=== PATIENT | male | born 1965 | race Caucasian/White ===

== ENCOUNTER 2025-01-14 19:36 | Emergency (ER) | payer OTHER, SELFPAY ==
--- OUTSIDE RECORDS SUMMARY | 2025-01-14 19:38 | XMS REPORT | Continuity of Care Document ---
Author Name Unknown Address [address] [facility] [address] [place] [address] [facility] thconnect Address [address] [facility] 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 Sex Assigned At [facility] Exposure to SARS-CoV-2 (event) Not sure [facility] Alcohol intake 2020-04-15 00:00:00 2020-04-15 00:00:00 [facility] History SDOH Alcohol Frequency 2020-04-15 00:00:00 2020-04-15 00:00:[address] [facility] Smoking Status Start Date Stop Date Source Former smoker 2020-04-15 00:00:00 2020-04-15 00:00:00 [facility] Medications Ordered Medication Name Filled Medication Name Start Date Stop Date Current Medication? Ordering Clinician Indication Dosage Frequency Signature (SIG) Comments Components Source metoprolol tartrate 100 mg tablet 02-21 00:00: 00 Yes 100mg Take 100 mg by mouth daily. [facility] atorvastati n 20 mg tablet 02-21 00:00: 00 Yes TAKE 1 TABLET BY MOUTH NIGHTLY [facility] enalapril 10 mg tablet 02-21 00:00: 00 Yes 10mg Take 10 mg by mouth daily. [facility] pantoprazol e 40 mg EC tablet 02-21 00:00: 00 Yes 40mg Take 40 mg by mouth at bedtime. [facility] Vital Signs Vital Name Observation Time Observation Value Comments Kathryn richter Systolic blood pressure 2020-04-15 18:40:00 133 mm[Hg] [facility] Diastolic blood pressure 2020-04-15 18:40:00 83 mm[Hg] [facility] Heart rate 2020-04-15 18:40:00 70 /min [facility] Body height 2020-04-15 18:40:[address] [facility] Body weight 2020-04-15 18:40:[address] [facility] BMI 2020-04-15 18:40:00 29.43 kg/m2 [facility] Encounters Start Date/Time End Date/Time Encounter Type Admission Type Attending [facility] Care Facility Care Department Encounter ID Source 2024-10-10 11:19:17 2024-10-10 11:19:17 Outpatient [facility] [id number] 2023-09-24 14:06:29 2023-09-24 14:06:29 Outpatient [facility] [id number] 2020-04-15 13:37:44 2020-04-15 14:15:42 Office Visit Lester Bills [facility] [id number] [facility] 2020-04-15 13:30:00 2020-04-15 13:30:00 Outpatient R LESTER BILLS [facility] [id number] [facility]
[2025-01-14] MEDS ORDERED: NITROGLYCERIN 0.4 MG/TAB SL ONE (21:04)
[2025-01-14 21:10] LABS: Absolute Basophils 0.1 K/uL (0-0.5); Absolute Eosinophils 0.3 K/uL (0-0.5); Absolute Lymphocytes (CBC) 2.6 K/uL (0.7-4.9); Absolute Neutrophil 7.1 K/uL (1.8-8.0); Basophils % 0.5 % (0-1.3); Eosinophils % 2.8 % (0-4.4); Hematocrit 37.7 % (39.6-49.0); Hemoglobin 12.7 g/dL (13.6-17.9); Lymphocytes % 23.6 % (15.3-44.8); MCH 29.4 pg (27.0-35.0); MCHC 33.8 g/dL (32.0-36.0); MPV 7.1 fL (7.6-11.3); Monocytes % 8.8 % (3.3-12.3); Neutrophils % 64.3 % (41.7-73.7); Platelets 384 thou/uL (152-406); RBC Red Blood Cell Count 4.33 M/uL (4.33-5.43); Red Cell Distribution Width 13.1 % (12.1-15.2)
[2025-01-14 21:16] LABS: PT Prothrombin Time 12.9 SECONDS (9.4-12.5); Protime INR 1.23
[2025-01-14 21:29] LABS: ALT/SGPT 22 U/L (16-61); AST/SGOT 17 U/L (15-37); Albumin 3.4 g/dL (3.4-5.0); Albumin/Globulin Ratio 0.9 (1.1-1.8); Alkaline Phosphatase 122 U/L (45-117); Anion Gap 8.7 mEq/L (5.0-15.0); BUN Blood Urea Nitrogen 24 mg/dL (7-18); Bicarbonate 25 mEq/L (21-32); Bilirubin Total 0.2 mg/dL (0.2-1.0); Glomerular Filtration Rate 57 ml/min (=/>90); Glucose Level 138 mg/dL (74-106); Magnesium 2.1 mg/dL (1.6-2.4); NT PRO-BNP 137 pg/mL (<125); Potassium 3.7 mEq/L (3.5-5.1); Protein, Total 7.4 g/dL (6.4-8.2); Sodium Level 136 mEq/L (136-145)
[2025-01-14 21:30] LABS: Bilirubin Direct < 0.2 mg/dL (0-0.2)
[2025-01-14] MEDS ORDERED: DIPHENHYDRAMINE 50 MG/ML VIAL ONE (22:13)
--- NOTE | 2025-01-14 22:13 | RAD REPORT ---
EXAM: CT brain without contrast HISTORY: Dizziness COMPARISON: None TECHNIQUE: Multiple contiguous axial images were obtained and a CT of the brain without contrast.. Sagittal and coronal reconstruction performed. Automated exposure control, adjustment of the mA and/or kV according to patient size, and/or iterative reconstruction. Unless otherwise specified, incidental f indings do not require dedicated imaging follow-up FINDINGS: An intracranial bleed is not seen Ventricles are normal caliber No extra-axial fluid collection noted Mild to low density periventricular and deep white matter likely changes secondary to small vessel di sease No fluid within the visualized sinuses or mastoids noted. IMPRESSION: No acute intracranial abnormality noted. If the patient continues to have symptoms to suggest an acute intracranial abnormality then MRI of th e brain would be recommended.
[2025-01-14] MEDS ORDERED: METHYLPREDNISOLONE 125 MG INJ ONE (22:16)
[2025-01-14] MEDS ORDERED: ALBUTEROL 2.5 MG/3 ML NEB SOL ONE (22:16)
[2025-01-14] MEDS ORDERED: IPRATROPIUM BROM 0.5MG/2.5ML ONE (22:16)
[2025-01-14] MEDS ORDERED: FAMOTIDINE 20 MG/2 ML VIAL IV ONE (22:16)
--- NOTE | 2025-01-14 22:25 | RAD REPORT ---
Procedure: Chest Single View HISTORY: Chest pain COMPARISON: none FINDINGS: The lungs appear clear of acute infiltrate. No significant pleural effusion noted. The heart is normal size. IMPRESSION: No acute abnormality is displayed.
--- NOTE | 2025-01-14 22:25 | RAD REPORT ---
EXAM: CTA of the chest, abdomen and pelvis HISTORY: Chest and abdominal pain COMPARISON: None TECHNIQUE: Multiple contiguous axial images were obtained a CTA of the chest and abdomen with contras t per aortic dissection protocol. Sagittal and coronal 3-D MIP reformats were performed. 100 cc Isovue-370 administered intravenously.Automated exposure control, adjustment of the mA and kV accordi ng to the patient size, and iterative reconstruction. Unless otherwise specified, incidental findings do not require dedicated imaging follow-up. FINDINGS: Short segment dissection distal abdominal aorta. No aortic aneurysm Moderate plaque right common external iliac artery Celiac, SMA and JL do not demonstrate a significant abnormality. High-grade stenosis proximal right renal artery. Paraseptal emphysema involves the upper lobes. No pleural effusion. No pericardial effusion. Mild fatty liver. Spleen, pancreas, adrenals, kidneys and bladder do not demonstrate a significant abnormality No evidence of diverticulitis.. Postsurgical changes thoracic spine [id number] inguinal hernias containing fat. IMPRESSION: Short segment dissection distal abdominal aorta. High-grade stenosis proximal right renal artery
[2025-01-14] MEDS ORDERED: MORPHINE 4 MG/ML SYR ONE ×2 (22:47→23:15)
[2025-01-14] MEDS ORDERED: LABETALOL 20 MG/4ML SYRINGE IV ONE (22:48)
--- NOTE | 2025-01-14 22:50 | EDPHYS ---
Physician Documentation [facility] Name: Hitesh Spring Age: 59 yrs Sex: Male : 1965 Arrival Date: 01/14/2025 Time: 19:36 Bed 25 Private MD: ED Physician Estuardo Gabriel HPI: 01/14 19:55 This 59 yrs old Male presents to ER via Ambulatory with complaints of Chest Pain. cp 19:55 The patient or guardian reports chest pain that is located primarily in the anterior cp chest wall, left. 19:55 Onset: 1 hour(s) ago. cp 19:55 The pain radiates to Associated signs and symptoms: Pertinent positives: dizziness, cp Pertinent negatives: abdominal pain, diaphoresis, lower extremity pain, lower extremity swelling, shortness of breath, syncope. The chest pain is described as a pressure. Duration: The patient or guardian reports a single episode, that is still ongoing. Historical: - Allergies: 19:50 No Known Allergies; me1 - PMHx: 19:50 Myocardial infarction; Hypertensive disorder; me1 - PSHx: 19:50 back surgery; me1 - Immunization history:: Adult Immunizations up to date. - Infectious Disease History:: Denies. - Social history:: Smoking status: Patient reports the use of cigarette tobacco products, smokes one pack cigarettes per day. ROS: 19:57 Constitutional: Negative for body aches, chills, fever, poor PO intake, cp 19:57 Cardiovascular: Positive for chest pain, cp 19:57 Respiratory: Negative for cough, shortness of breath, wheezing, 19:57 Abdomen/GI: Negative for abdominal pain, vomiting, diarrhea, constipation, 19:57 Neuro: Positive for dizziness, Negative for altered mental status, numbness, syncope, near syncope, weakness, 19:57 Eyes: Negative for injury, pain, redness, and discharge, cp 19:57 Back: Positive for radiated pain, cp 19:57 All other systems are negative, Exam: 19:57 ECG was reviewed by the Attending Physician. cp 20:00 Constitutional: The patient appears in no acute distress, alert, awake, cp non-diaphoretic, non-toxic, well developed, well nourished, uncomfortable, 20:00 Head/Face: Normocephalic, atraumatic. cp 20:00 Eyes: Periorbital structures: appear normal, Conjunctiva: normal, no exudate, no injection, Sclera: no appreciated abnormality, Lids and lashes: appear normal, bilaterally, 20:00 ENT: External ear(s): are unremarkable, Nose: is normal, Mouth: Lips: moist, Oral mucosa: moist, Posterior pharynx: Airway: no evidence of obstruction, patent, 20:00 Chest/axilla: Inspection: normal, Palpation: crepitus, is not appreciated, tenderness, is not appreciated, 20:00 Cardiovascular: Rate: normal, Rhythm: regular, Edema: is not appreciated, JVD: is not appreciated, 20:00 Respiratory: the patient does not display signs of respiratory distress, Respirations: normal, no use of accessory muscles, no retractions, labored breathing, is not present, Breath sounds: are clear throughout, no decreased breath sounds, no stridor, no wheezing, 20:00 Abdomen/GI: Inspection: abdomen appears normal, Bowel sounds: active, all quadrants, Palpation: abdomen is soft and non-tender, in all quadrants, 20:00 Back: ROM is normal, 20:00 Neuro: Orientation: to person, place \T\ time. Mentation: able to follow commands, Cerebellar function: is grossly normal, Motor: moves all fours, strength is normal, Sensation: is normal, Vital Signs: 19:48 BP 206 / 107; Pulse 97; Resp 18; Temp 97.9; Pulse Ox 98% ; Weight 95.25 kg; Height 5 me1 ft. 7 in. ; Pain 8/10; 21:07 BP 186 / 104; Pulse 89; Resp 16; Pulse Ox 94% on R/A; jb4 22:30 BP 167 / 86; Pulse 86; Resp 28; Pulse Ox 98% ; jb4 23:18 BP 181 / 98; Pulse 83; Resp 18; Pulse Ox 94% on R/A; jb4 23:46 BP 174 / 96; Pulse 81; Resp 23; Pulse Ox 93% on 2 lpm NC; jb4 01/15 00:30 BP 158 / 84; Pulse 90; Resp 27; Pulse Ox 94% on 2 lpm NC; jb4 01/14 19:48 Body Mass Index 32.89 (95.25 kg, 170.18 cm) [facility] [place] 19:48 Pain Scale: Adult me1 MDM: 01/14 19:49 Medical Screening Exam initiated cp 21:00 Differential diagnosis: abnormal EKG, acute myocardial infarction, pleurisy, pneumonia, cp pneumothorax, stable angina, thoracic aortic disection, unstable angina. 22:50 Management of patient was discussed with the following: Hospitalist: Tylor Liriano NP cp recommends transfer for vascular surgery consult. 22:50 The patient was not given aspirin in the Emergency Department. Data reviewed: vital cp signs, nurses notes, lab test result(s), EKG, radiologic studies, CT scan, plain films, and as a result, I will transfer patient. Independent interpretation of the following test(s) in the Emergency Department EKG: See my EKG interpretation above. 01/15 00:30 Response to treatment: improved. 00:30 ED course: consult with booking police officer at [facility] who will accept patient as cp transfer. 01/14 19:53 Order name: Basic Metabolic Panel; Complete Time: 21:31 01/14 21:31 Interpretation: Normal except: GLUC 138; BUN 24; CRE 1.41; GFR 57; CA 8.2. 01/14 19:53 Order name: CBC with Diff; Complete Time: 21:28 01/14 21:28 Interpretation: Normal except: WBC 11.00; HGB 12.7; HCT 37.7; MPV 7.1. 01/14 19:53 Order name: LFT's; Complete Time: 21:31 01/14 19:53 Order name: Magnesium; Complete Time: 21:31 01/14 19:53 Order name: NT PRO-BNP; Complete Time: 21:31 01/14 21:31 Interpretation: Reviewed. 01/14 19:53 Order name: PT-INR; Complete Time: 21:28 01/14 19:53 Order name: Troponin HS; Complete Time: 21:31 01/14 21:32 Interpretation: Reviewed. 01/14 19:53 Order name: XRAY Chest (1 view); Complete Time: 22:27 01/14 22:27 Interpretation: Report review. 01/14 20:07 Order name: CT Head Brain wo Cont; Complete Time: 22:27 01/14 20:07 Order name: CT Aorta for Dissection; Complete Time: 22:27 01/14 19:53 Order name: Cardiac monitoring; Complete Time: 20:15 cp 16 19:53 Order name: EKG - Nurse/Tech; Complete Time: 20:15 cp 01/14 19:53 Order name: IV Saline Lock; Complete Time: 21:36 cp 16 19:53 Order name: Labs collected and sent; Complete Time: 21:36 cp 16 19:53 Order name: O2 Per Protocol; Complete Time: 20:15 cp 01/14 19:53 Order name: O2 Sat Monitoring; Complete Time: 20:15 cp EC/16 19:57 Rate is 89 beats/min. Rhythm is regular. MI interval is normal. QRS interval is normal. cp QT interval is normal. T waves are Inverted in lead aVR. Interpreted by me. Reviewed by me. Administered Medications: 21:07 Drug: Nitroglycerin Sublingual 0.4 mg Sublingual once; every five minute if needed x3 jb4 Route: Sublingual; 22:43 Follow up: Response: No adverse reaction; Marked relief of symptoms; Pain is decreased jb4 22:24 Drug: diphenhydrAMINE IVP 50 mg IVP once Route: IVP; Site: left forearm; jb4 23:00 Follow up: Response: No adverse reaction; Marked relief of symptoms jb4 22:24 Drug: Famotidine IVP 20 mg IVP once; dilute with 10 mL 0.9% NaCl; give over 2 minutes jb4 Route: IVP; Site: left forearm; 23:00 Follow up: Response: No adverse reaction; Marked relief of symptoms jb4 22:24 Not Given (Other Intervention Used): DuoNeb Nebulize (2.5 mg - 0.5 mg) 3 ml Nebulizer jb4 once 22:28 Drug: MethylPrednisoLONE IVP 125 mg IVP once Route: IVP; Site: left forearm; jb4 23:00 Follow up: Response: No adverse reaction; Marked relief of symptoms jb4 22:28 Drug: Albuterol Inhalation 7.5 mg Inhalation once Route: Inhalation; jb4 23:00 Follow up: Response: No adverse reaction; Marked relief of symptoms jb4 22:28 Drug: Ipratropium Inhalation Aerosol 0.5 mg Inhalation once Route: Inhalation; jb4 23:00 Follow up: Response: No adverse reaction; Marked relief of symptoms jb4 22:53 Drug: Labetalol IV 10 mg IV at calculated rate once over 2 mins; For SBP greater than jb4 140. Hold for HR less than 60, notify provider. Route: IV; Rate: calculated rate; Infused Over: 2 mins; Site: left forearm; 22:55 Follow up: IV Status: Completed infusion; IV Intake: 2ml jb4 23:17 Follow up: Response: No adverse reaction; No change in condition jb4 22:53 Drug: morphine IVP or IV 4 mg IVP once over 4 mins Route: IVP; Infused Over: 4 mins; 4 Site: left forearm; 23:17 Follow up: Response: No adverse reaction; No change in condition jb4 23:17 Drug: morphine IVP or IV 4 mg IVP once over 4 mins Route: IVP; Infused Over: 4 mins; 4 Site: left forearm; 01/15 00:44 Follow up: Response: No adverse reaction; Marked relief of symptoms; Pain is decreased [facility] 01/14 23:20 CANCELLED (Physician Discretion): morphineor iv 4 mg IVP once over 4 mins cp 23:47 CANCELLED (Physician Discretion): [id number] mg IV at calculated rate once over 2 cp mins; For SBP greater than 140. Hold for HR less than 60, notify provider. 23:59 Drug: Metoprolol PO 50 mg PO once Route: PO; [facility] 01/15 00:44 Follow up: Response: No adverse reaction [facility] 01/14 23:59 Drug: hydrALAZINE IVP 10 mg IVP once Route: IVP; Site: left antecubital; 4 01/15 00:43 Follow up: Response: No adverse reaction; Marked relief of symptoms; Blood pressure is jb4 lowered 01/14 23:59 Drug: HydrALAZINE PO 25 mg PO once Route: PO; 4 01/15 00:43 Follow up: Response: No adverse reaction [facility] 00:26 Drug: hydrALAZINE IVP 10 mg IVP once Route: IVP; Site: left forearm; jb4 00:43 Follow up: Response: No adverse reaction [facility] Disposition Summary: 01/14/25 22:49 Transfer Ordered Notes: Transfer Location: [facility] cp Reason: Higher level of care cp Condition: Stable cp Problem: new cp Symptoms: have improved cp Accepting Physician: Doctor(01/15/25 00:59) jb4 Diagnosis - Hypertensive heart disease without heart failure cp - Chest pain, unspecified cp - Dissection of abdominal aorta cp Forms: - Medication Reconciliation Form cp - SBAR form cp Signatures: Dispatcher [employer] EDMS Estuardo Alvarenga PA PA cp Hitesh Oconnor, RN RN jb4 Amanda Quick, RN RN me1 Corrections: (The following items were deleted from the chart) 01/14 20:08 20:08 Head Brain Wo Cont+CT.RAD.BRZ ordered. EDMS EDMS 20:08 20:08 Angio Aorta For Dissection+CT.RAD.BRZ ordered. EDGA EDMS 23:17 22:49 Doctor cp cp 23:17 22:49 Abdominal aortic aneurysm, without rupture cp cp 23:20 23:19 morphine IVP or IV 4 mg IVP once over 4 mins ordered. cp cp 23:47 23:20 Labetalol IV 10 mg IV at calculated rate once over 2 mins; For SBP greater than cp 140. Hold for HR less than 60, notify provider. ordered. cp 01/15 00:59 01/14 23:17 Doctor cp jb4 01/16 00:39 01/14 22:45 Management of patient was discussed with the following: Hospitalist: Tylor Liriano NP recommends transfer for vascular surgery consult. cp
--- NOTE | 2025-01-14 22:50 | ER ---
Nurse's Notes [facility] – [place], [place] Name: Hitesh Spring Age: 59 yrs Sex: Male : 1965 Arrival Date: 01/14/2025 Time: 19:36 Bed 25 Private MD: Diagnosis: Hypertensive heart disease without heart failure;Chest pain, unspecified;Dissection of abdominal aorta Presentation: 01/14 19:48 Chief complaint: Patient states: left chest pain that radiates to his back w/sob and me1 dizziness that started tonight. Reports elevated bp for about 2 weeks. Pain is 8/10. Coronavirus screen: Vaccine status: Patient reports being unvaccinated. Ebola Screen: No symptoms or risks identified at this time. Initial Sepsis Screen: Does the patient meet any 2 criteria? HR > 90 bpm. Does the patient have a suspected source of infection? No. Patient's initial sepsis screen is negative. Risk Assessment: Do you want to hurt yourself or someone else? Patient reports no desire to harm self or others. Onset of symptoms was January 14, 2025 at 18:00. 19:48 Method Of Arrival: Ambulatory wi1 19:48 Acuity: REYNA 3 me1 Triage Assessment: 19:50 General: Appears uncomfortable, Behavior is calm, cooperative, appropriate for age. me1 Pain: Complains of pain in anterior aspect of left upper chest Pain radiates to left subscapular area and left hand Pain currently is 8 out of 10 on a pain scale. Quality of pain is described as sharp, Pain began suddenly. Neuro: Level of Consciousness is awake, alert, obeys commands, Oriented to person, place, time, situation, Appropriate for age. Cardiovascular: Reports chest pain, lightheadedness, shortness of breath, Patient's skin is warm and dry. Respiratory: Airway is patent Respiratory effort is even, unlabored, Respiratory pattern is regular, symmetrical. Derm: Skin is intact, is healthy with good turgor, Skin is pink, warm \T\ dry. Historical: - Allergies: 19:50 No Known Allergies; me1 - PMHx: 19:50 Myocardial infarction; Hypertensive disorder; me1 - PSHx: 19:50 back surgery; me1 - Immunization history:: Adult Immunizations up to date. - Infectious Disease History:: Denies. - Social history:: Smoking status: Patient reports the use of cigarette tobacco products, smokes one pack cigarettes per day. Screenin/17 00:30 [facility] ED Fall Risk Assessment (Adult) History of falling in the last 3 months, jb4 including since admission No falls in past 3 months (0 pts) Confusion or Disorientation No (0 pts) Intoxicated or Sedated No (0 pts) Impaired Gait No (0 pts) Mobility Assist Device Used No (0 pt) Altered Elimination No (0 pt) Score/Fall Risk Level 0 - 2 = Low Risk Oriented to surroundings, Maintained a safe environment. Abuse screen: Denies threats or abuse. Nutritional screening: No deficits noted. Tuberculosis screening: No symptoms or risk factors identified. Assessment: 01/14 20:00 General: Appears in no apparent distress. uncomfortable, Behavior is calm, cooperative, jb4 appropriate for age. Pain: Complains of pain in chest Pain does not radiate. Pain currently is 8 out of 10 on a pain scale. Neuro: Level of Consciousness is awake, alert, obeys commands, Oriented to person, place, time, situation. Cardiovascular: Patient's skin is warm and dry. Respiratory: Airway is patent Respiratory effort is even, unlabored, Respiratory pattern is regular, symmetrical. Derm: Skin is intact, Skin is pink, warm \T\ dry. Musculoskeletal: Circulation, motion, and sensation intact. Range of motion: intact in all extremities. 21:00 Reassessment: Patient appears in no apparent distress at this time. Patient and/or jb4 family updated on plan of care and expected duration. Pain level reassessed. Patient is alert, oriented x 3, equal unlabored respirations, skin warm/dry/pink. 22:00 Reassessment: Patient appears in no apparent distress at this time. Patient and/or jb4 family updated on plan of care and expected duration. Pain level reassessed. Patient is alert, oriented x 3, equal unlabored respirations, skin warm/dry/pink. 23:00 Reassessment: Patient appears in no apparent distress at this time. Patient and/or jb4 family updated on plan of care and expected duration. Pain level reassessed. Patient is alert, oriented x 3, equal unlabored respirations, skin warm/dry/pink. 23:58 Reassessment: Patient appears in no apparent distress at this time. Patient and/or jb4 family updated on plan of care and expected duration. Pain level reassessed. Patient is alert, oriented x 3, equal unlabored respirations, skin warm/dry/pink. 01/15 00:57 Reassessment: Patient appears in no apparent distress at this time. Patient and/or jb4 family updated on plan of care and expected duration. Pain level reassessed. Patient is alert, oriented x 3, equal unlabored respirations, skin warm/dry/pink. Vital Signs: 01/14 19:48 BP 206 / 107; Pulse 97; Resp 18; Temp 97.9; Pulse Ox 98% ; Weight 95.25 kg; Height 5 me1 ft. 7 in. ; Pain 8/10; 21:07 BP 186 / 104; Pulse 89; Resp 16; Pulse Ox 94% on R/A; jb4 22:30 BP 167 / 86; Pulse 86; Resp 28; Pulse Ox 98% ; jb4 23:18 BP 181 / 98; Pulse 83; Resp 18; Pulse Ox 94% on R/A; jb4 23:46 BP 174 / 96; Pulse 81; Resp 23; Pulse Ox 93% on 2 lpm NC; jb4 01/15 00:30 BP 158 / 84; Pulse 90; Resp 27; Pulse Ox 94% on 2 lpm NC; jb4 01/14 19:48 Body Mass Index 32.89 (95.25 kg, 170.18 cm) [place] 01/14 19:48 Pain Scale: Adult [place] ED Course: 01/14 19:45 Patient arrived in ED. ra3 19:48 [facility] cp 19:49 Estuardo Gabriel MD is Attending Physician. cp 19:50 Triage completed. me1 20:00 No provider procedures requiring assistance completed. Patient maintains SpO2 jb4 saturation greater than 95% on room air. 20:00 Client placed on continuous cardiac and pulse oximetry monitoring. NIBP monitoring jb4 applied. monorail operator on. Pulse ox on. 20:40 XRAY Chest (1 view) In Process Unspecified. EDMS 20:44 Missed attempt(s): 20 gauge in right in left antecubital area. Bleeding controlled, rk3 band aid applied, catheter tip intact. 20:45 PO fluids given. rk3 21:00 Inserted saline lock: 18 gauge in left forearm, using aseptic technique. Blood jb4 collected. 22:01 Hitesh Oconnor, RN is Primary Nurse. jb4 22:05 CT Head Brain wo Cont In Process Unspecified. EDMS 22:06 CT Aorta for Dissection In Process Unspecified. EDMS 23:10 initiated transfer to [facility] spoke with Elmira. vk 23:19 Patient was accepted to [facility] per Elmira Turner to Dr. Easton to 7A Bed1 vk Report# [phone]. 23:30 Initiated transport with EMS spoke with Ciro patient was accepted ETA 15 mins. vk 02 00:30 Patient has correct armband on for positive identification. Bed in low position. Call jb4 light in reach. Side rails up X 1. Provided Education on: need for transfer. 00:58 Patient transferred, IV remains in place. jb4 Administered Medications: 01/14 21:07 Drug: Nitroglycerin Sublingual 0.4 mg Sublingual once; every five minute if needed x3 jb4 Route: Sublingual; 22:43 Follow up: Response: No adverse reaction; Marked relief of symptoms; Pain is decreased jb4 22:24 Drug: diphenhydrAMINE IVP 50 mg IVP once Route: IVP; Site: left forearm; jb4 23:00 Follow up: Response: No adverse reaction; Marked relief of symptoms jb4 22:24 Drug: Famotidine IVP 20 mg IVP once; dilute with 10 mL 0.9% NaCl; give over 2 minutes jb4 Route: IVP; Site: left forearm; 23:00 Follow up: Response: No adverse reaction; Marked relief of symptoms jb4 22:24 Not Given (Other Intervention Used): DuoNeb Nebulize (2.5 mg - 0.5 mg) 3 ml Nebulizer jb4 once 22:28 Drug: MethylPrednisoLONE IVP 125 mg IVP once Route: IVP; Site: left forearm; jb4 23:00 Follow up: Response: No adverse reaction; Marked relief of symptoms jb4 22:28 Drug: Albuterol Inhalation 7.5 mg Inhalation once Route: Inhalation; jb4 23:00 Follow up: Response: No adverse reaction; Marked relief of symptoms jb4 22:28 Drug: Ipratropium Inhalation Aerosol 0.5 mg Inhalation once Route: Inhalation; jb4 23:00 Follow up: Response: No adverse reaction; Marked relief of symptoms jb4 22:53 Drug: Labetalol IV 10 mg IV at calculated rate once over 2 mins; For SBP greater than jb4 140. Hold for HR less than 60, notify provider. Route: IV; Rate: calculated rate; Infused Over: 2 mins; Site: left forearm; 22:55 Follow up: IV Status: Completed infusion; IV Intake: 2ml [facility] 23:17 Follow up: Response: No adverse reaction; No change in condition [facility] 22:53 Drug: morphine IVP or IV 4 mg IVP once over 4 mins Route: IVP; Infused Over: 4 mins; 4 Site: left forearm; 23:17 Follow up: Response: No adverse reaction; No change in condition [facility] 23:17 Drug: morphine IVP or IV 4 mg IVP once over 4 mins Route: IVP; Infused Over: 4 mins; 4 Site: left forearm; 01/15 00:44 Follow up: Response: No adverse reaction; Marked relief of symptoms; Pain is decreased [facility] 01/14 23:20 CANCELLED (Physician Discretion): morphineor iv 4 mg IVP once over 4 mins 23:47 CANCELLED (Physician Discretion): [id number] mg IV at calculated rate once over 2 cp mins; For SBP greater than 140. Hold for HR less than 60, notify provider. 23:59 Drug: Metoprolol PO 50 mg PO once Route: PO; [facility] 01/15 00:44 Follow up: Response: No adverse reaction [facility] 01/14 23:59 Drug: hydrALAZINE IVP 10 mg IVP once Route: IVP; Site: left antecubital; 4 01/15 00:43 Follow up: Response: No adverse reaction; Marked relief of symptoms; Blood pressure is 4 lowered 01/14 23:59 Drug: HydrALAZINE PO 25 mg PO once Route: PO; 4 01/15 00:43 Follow up: Response: No adverse reaction [facility] 00:26 Drug: hydrALAZINE IVP 10 mg IVP once Route: IVP; Site: left forearm; [facility] 00:43 Follow up: Response: No adverse reaction [facility] Medication: 00:30 VIS not applicable for this client. jb4 Intake: 01/14 22:55 IV: 2ml; Total: 2ml. 4 Outcome: 22:49 ER care complete, transfer ordered by MD. carranza 01/15 00:59 Transferred by ground EMS to [facility], Transfer form completed. jb4 X-rays sent w/ patient. Condition: stable Discharge instructions given to patient, family, Instructed on the need for transfer, Demonstrated understanding of instructions, 00:59 Patient left the ED. jb4 Signatures: Dispatcher [employer] Estuardo Anguiano PA PA cp Bryson, James RN RN jb4 Amanda Quick RN RN me1 Marifer Tolliver ra3 Radha Benton Rozana rk3 Corrections: (The following items were deleted from the chart) 04:02 02/ 23:34 initiated transfer to [facility] spoke with Elmira bernabe
[2025-01-14] MEDS ORDERED: HYDRALAZINE HCL 25 MG TABLET ONE (23:51)
[2025-01-14] MEDS ORDERED: METOPROLOL TAR 50 MG TAB ONE (23:51)
[2025-01-14] MEDS ORDERED: HYDRALAZINE HCL 20 MG/ML VIAL ONE (23:51)
[2025-01-15] MEDS ORDERED: HYDRALAZINE HCL 20 MG/ML VIAL ONE (00:22)
[2025-01-15 01:21] VITALS: TEMP 97.9
[2025-01-15 01:27] VITALS: BP 158/84; O2SAT 94
== END 2025-01-15 00:59 | disposition short-term general hospital (02) ==
LOC: ER 19:36
DX: I11.9 Hypertensive heart disease without heart failure (principal); I71.02 Dissection of abdominal aorta
CPT/HCPCS: 36415; 70450; 71045; 71275; 74175; 80048; 80076; 83735; 83880; 84484; 85025; 85610; 93005; 99285; J0360; J1200; J2919; J7613; J7644; Q9967

== ENCOUNTER 2025-01-30 16:17 | Emergency (ER) | payer SELFPAY ==
--- NOTE | 2025-01-30 17:14 | RAD REPORT ---
EXAMINATION: US bilateral LOWER EXTREMITY VENOUS DOPPLER CLINICAL INDICATION: Leg pain TECHNIQUE: Sonographic evaluation of the veins of the lower extremity bilaterally formed.Grayscale, c olor and spectral analysis performed on all vessels COMPARISON: No prior exam. FINDINGS: The common femoral, superficial femoral, greater saphenous, popliteal and posterior tibial veins bila terally are compressible and demonstrate augmentation. Doppler demonstrates good flow. IMPRESSION: No evidence of deep venous thrombosis involving either lower extremity
--- NOTE | 2025-01-30 17:38 | RAD REPORT ---
Procedure: Chest Single View HISTORY: Cough COMPARISON: December 2024 FINDINGS: The lungs appear clear of acute infiltrate. No significant pleural effusion noted. The heart is normal size. IMPRESSION: No acute abnormality is displayed.
[2025-01-30 17:43] LABS: Absolute Basophils 0.1 K/uL (0-0.5); Absolute Eosinophils 0.2 K/uL (0-0.5); Absolute Lymphocytes (CBC) 2.2 K/uL (0.7-4.9); Absolute Monocytes 1.4 K/uL (0.1-1.3); Absolute Neutrophil 10.4 K/uL (1.8-8.0); Basophils % 0.6 % (0-1.3); Eosinophils % 1.6 % (0-4.4); Hematocrit 33.6 % (39.6-49.0); Hemoglobin 11.7 g/dL (13.6-17.9); Lymphocytes % 15.3 % (15.3-44.8); MCH 29.8 pg (27.0-35.0); MCHC 34.8 g/dL (32.0-36.0); MCV 85.7 fL (80-100); Neutrophils % 72.5 % (41.7-73.7); Platelets 358 thou/uL (152-406); RBC Red Blood Cell Count 3.92 M/uL (4.33-5.43)
[2025-01-30 17:54] LABS: PT Prothrombin Time 12.9 SECONDS (10.0-13.0); Protime INR 1.14
[2025-01-30 18:02] LABS: ALT/SGPT 46 U/L (16-61); AST/SGOT 21 U/L (15-37); Albumin 3.5 g/dL (3.4-5.0); Albumin/Globulin Ratio 0.9 (1.1-1.8); Alkaline Phosphatase 120 U/L (45-117); BUN Blood Urea Nitrogen 18 mg/dL (7-18); Bicarbonate 26 mEq/L (21-32); Bilirubin Direct < 0.2 mg/dL (0-0.2); Bilirubin Indirect, Calculated 0.2 mg/dL (0.2-0.8); Bilirubin Total 0.4 mg/dL (0.2-1.0); Glomerular Filtration Rate 74 ml/min (=/>90); Glucose Level 116 mg/dL (74-106); Protein, Total 7.5 g/dL (6.4-8.2); Sodium Level 137 mEq/L (136-145); Troponin High Sensitivity 3.8 pg/mL (<58.9)
[2025-01-30] MEDS ORDERED: DIPHENHYDRAMINE 50 MG/ML VIAL ONE (18:32)
[2025-01-30] MEDS ORDERED: METHYLPREDNISOLONE 125 MG INJ ONE (18:32)
--- NOTE | 2025-01-30 18:37 | RAD REPORT ---
EXAMINATION: CTA CHEST PE CLINICAL INDICATION: Chest pain TECHNIQUE: 100 cc 370 Isovue administered intravenously. This examination was performed according to an angiographic protocol with 3D post-processing. This involves 3D reconstructions, MIPs, volume rendered images and/or shaded surface rendering. One or more of the following dose reduction techniqu es were used: Automated exposure control, adjustment of the mA and/or kV according to patient size, and/or iterative reconstruction. Unless otherwise specified, incidental findings do not require dedic ated imaging follow-up. [id number]. COMPARISON: No prior exam. FINDINGS: A pulmonary embolus is not seen. An aortic aneurysm not noted. No pleural effusion. No pericardial effusion. Prominent blebs left upper lobe. Lungs are otherwise clear. IMPRESSION: No evidence of a pulmonary embolism
--- NOTE | 2025-01-30 18:50 | RAD REPORT ---
EXAM: CTA of the chest, abdomen and pelvis HISTORY: Chest and abdominal pain COMPARISON: December 2024 TECHNIQUE: Multiple contiguous axial images were obtained a CTA of the chest and abdomen with contras t per aortic dissection protocol. Sagittal and coronal 3-D MIP reformats were performed. 140 cc Isovue-370 administered intravenously.Automated exposure control, adjustment of the mA and kV accordi ng to the patient size, and iterative reconstruction. Unless otherwise specified, incidental findings do not require dedicated imaging follow-up. FINDINGS: Noncalcified plaque proximal left common carotid artery results in a moderate stenosis. Short segment dissection distal abdominal aorta unchanged No aortic aneurysm Celiac, SMA and JL do not demonstrate a significant abnormality. High-grade stenosis proximal right renal artery. Paraseptal emphysema involves the upper lobes. Liver, spleen, pancreas, adrenals, kidneys and bladder do not demonstrate a significant abnormality No evidence of diverticulitis. Post surgical changes thoracic spine. Left pedicular screw T7 protrudes 3 mm outside of the cortex of the vertebral body. The tip lies adjacent to the right posterior aspect of the aorta. Small to moderate inguinal hernias containing fat. IMPRESSION: Short segment dissection distal abdominal aorta unchanged from prior exam Left pedicular screw T7 protrudes 3 mm outside of the cortex of the vertebral body. The tip lies zonia cent to the right posterior aspect of the aorta.
[2025-01-30] MEDS ORDERED: MORPHINE 4 MG/ML SYR ONE (19:40)
--- NOTE | 2025-01-30 20:18 | ER ---
Nurse's Notes [facility] Name: Hitesh Spring Age: 59 yrs Sex: Male : 1965 Arrival Date: 01/30/2025 Time: 16:17 Bed 16 Private MD: Diagnosis: Pain in right leg;Short segment dissection distal abdominal aorta -unchanged Presentation: 01/30 16:31 Chief complaint: Patient states: Right sided leg pain radiates to groin. Swelling to ld1 JOSE DANIEL legs. Upper abdominal pain/chest pain while coughing. Coronavirus screen: At this time, the client does not indicate any symptoms associated with coronavirus-19. Ebola Screen: No symptoms or risks identified at this time. Initial Sepsis Screen: Does the patient meet any 2 criteria? No. Patient's initial sepsis screen is negative. Does the patient have a suspected source of infection? No. Patient's initial sepsis screen is negative. Risk Assessment: Do you want to hurt yourself or someone else? Patient reports no desire to harm self or others. Onset of symptoms was January 30, 2025. 16:31 Method Of Arrival: Ambulatory ld1 16:31 Acuity: REYNA 3 ld1 Triage Assessment: 16:32 General: Appears in no apparent distress. comfortable, Behavior is calm, cooperative, ld1 appropriate for age. Pain: Complains of pain in abdomen, right leg and left leg Pain radiates to left leg Pain currently is 8 out of 10 on a pain scale. Quality of pain is described as throbbing. EENT: No signs and/or symptoms were reported regarding the EENT system. Neuro: Level of Consciousness is awake, alert, obeys commands, Oriented to person, place, time, situation. Cardiovascular: Capillary refill < 3 seconds Patient's skin is warm and dry. Respiratory: Airway is patent Respiratory effort is even, unlabored. GI: Abdomen is round non-distended. : No signs and/or symptoms were reported regarding the genitourinary system. Derm: No signs and/or symptoms reported regarding the dermatologic system. Musculoskeletal: No signs and/or symptoms reported regarding the musculoskeletal system. Historical: - Allergies: 16:32 No Known Allergies; ld1 - PMHx: 16:32 Hypertensive disorder; Myocardial infarction; ld1 - PSHx: 16:32 back surgery; ld1 - Immunization history:: Adult Immunizations up to date. - Infectious Disease History:: Denies. - Social history:: Smoking status: Patient/guardian denies using tobacco, Stopped _ months ago 1. Screenin:[address] [facility] ED Fall Risk Assessment (Adult) History of falling in the last 3 months, jl7 including since admission No falls in past 3 months (0 pts) Confusion or Disorientation No (0 pts) Intoxicated or Sedated No (0 pts) Impaired Gait No (0 pts) Mobility Assist Device Used No (0 pt) Altered Elimination No (0 pt) Score/Fall Risk Level 0 - 2 = Low Risk Oriented to surroundings, Maintained a safe environment. Abuse screen: Denies threats or abuse. Denies injuries from another. Nutritional screening: No deficits noted. Tuberculosis screening: No symptoms or risk factors identified. Assessment: 18:15 General: Appears in no apparent distress. uncomfortable, Behavior is cooperative. Pain: jl7 Complains of pain in right leg Pain currently is 10 out of 10 on a pain scale. Neuro: Godwin Agitation-Sedation Scale (RASS): +1 Restless Level of Consciousness is awake, alert, obeys commands, Oriented to person, place, time, situation. Cardiovascular: Patient's skin is warm and dry. Respiratory: Airway is patent Respiratory effort is even, unlabored, Respiratory pattern is regular, symmetrical. Derm: Skin is pink, warm \T\ dry. 19:30 Reassessment: No changes from previously documented assessment. Patient and/or family rg5 updated on plan of care and expected duration. Pain level reassessed. Patient is alert, oriented x 3, equal unlabored respirations, skin warm/dry/pink. 19:30 General: Appears in no apparent distress. comfortable, Behavior is calm, cooperative. rg5 Pain: Complains of pain in right leg. Neuro: Level of Consciousness is awake, alert, Oriented to person, place, time, situation. Cardiovascular: Patient's skin is warm and dry. Respiratory: Airway is patent Trachea midline Respiratory effort is even, unlabored, Respiratory pattern is regular, symmetrical. Vital Signs: 16:31 BP 143 / 75; Pulse 82; Resp 18; Temp 98.2(TE); Pulse Ox 95% on R/A; Weight 90.72 kg; ld1 Height 5 ft. 7 in. ; Pain 10/10; 18:50 BP 130 / 66; Pulse 71; Resp 19; Pulse Ox 98% ; Pain 10/10; jl7 19:30 BP 144 / 78; Pulse 82; Resp 18; Pulse Ox 96% on R/A; Pain 3/10; rg5 16:31 Body Mass Index 31.32 (90.72 kg, 170.18 cm) ld1 16:31 Pain Scale: Adult ld1 18:50 Pain Scale: Adult jl7 19:30 Pain Scale: Adult rg5 ED Course: 16:20 Patient arrived in ED. al6 16:21 Roma Perez, MALLORIE-Nicole is PHCP. kb 16:21 Tadeo Sutherland MD is Attending Physician. kb 16:32 Triage completed. ld1 16:32 Arm band placed on right wrist. ld1 17:10 US Extremity Venous W Compression Jose Daniel In Process Unspecified. EDMS 17:25 Basic Metabolic Panel Sent. bc6 17:25 CBC with Diff Sent. bc6 17:25 LFT's Sent. bc6 17:25 PT-INR Sent. bc6 17:25 Troponin HS Sent. bc6 17:25 Initial lab(s) drawn, by ok, sent to lab. Inserted saline lock: 20 gauge in right bc6 antecubital area, using aseptic technique. Blood collected. Flushed with 10 mL NS. 17:31 XRAY Chest (1 view) In Process Unspecified. EDMS 18:24 CT Aorta for Dissection In Process Unspecified. EDMS 18:24 CT Chest For PE Angio In Process Unspecified. EDMS 18:28 Walter Hernandez, RN is Primary Nurse. jl7 18:50 Patient has correct armband on for positive identification. Provided Education on: use jl7 of call alves. Client placed on continuous cardiac and pulse oximetry monitoring. NIBP monitoring applied. 18:50 EKG done, by ED staff, reviewed by Tadeo Sutherland MD. jl7 20:18 No provider procedures requiring assistance completed. IV discontinued, bleeding rg5 controlled, No redness/swelling at site. Pressure dressing applied. Administered Medications: 18:37 Drug: MethylPrednisoLONE IVP 125 mg IVP once Route: IVP; Site: right antecubital; jl7 19:29 Follow up: Response: No adverse reaction rg5 18:37 Drug: diphenhydrAMINE IVP 25 mg IVP once Route: IVP; Site: right antecubital; jl7 19:29 Follow up: Response: No adverse reaction rg5 19:49 Drug: morphine IVP or IV 4 mg IVP once over 4 mins Route: IVP; Infused Over: 4 mins; rg5 Site: right antecubital; 20:15 Follow up: Response: No adverse reaction; Pain is decreased rg5 Medication: 18:50 VIS not applicable for this client. jl7 Outcome: 20:18 Discharge ordered by MD. anna 20:24 Discharged to home ambulatory, rg5 20:24 Condition: stable 20:24 Discharge instructions given to patient, Instructed on discharge instructions, follow up and referral plans. Demonstrated understanding of instructions, follow-up care, 20:29 Patient left the ED. rg5 Signatures: Dispatcher [employer] EDRoma Esquivel, MALLORIE-C PHYSICIAN OPHTHALMOLOGIST-Walter Kwong RN RN jl7 Lacie Mcintosh RN RN ld1 Betsy Brown6 Zak Guy RN RN rg5 Kelly Damon al6
--- NOTE | 2025-01-30 20:18 | EDPHYS ---
Physician Documentation [facility] Name: Hitesh Spring Age: 59 yrs Sex: Male : 1965 Arrival Date: 01/30/2025 Time: 16:17 Bed 16 Private MD: ED Physician Tadeo Sutherland HPI: 01/30 16:24 This 59 yrs old Male presents to ER via Unassigned with complaints of Leg Pain, lung kb pain. 16:24 Pt is a 59 year old male who presents for pain to right calf that started 10 days ago. kb The pain has moved up his leg to his groin since onset. Also reports abdominal pain and low back pain that is worse with cough. Reports shortness of breath. Reports aortic dissection on 01/14/25, was transferred to [facility] and discharged on the . States the leg pain started just after discharge. Did not have any intervention done at [facility]. States they are treating with medication.. Historical: - Allergies: 16:32 No Known Allergies; ld1 - PMHx: 16:32 Hypertensive disorder; Myocardial infarction; ld1 - PSHx: 16:32 back surgery; ld1 - Immunization history:: Adult Immunizations up to date. - Infectious Disease History:: Denies. - Social history:: Smoking status: Patient/guardian denies using tobacco, Stopped _ months ago 1. ROS: 16:27 Constitutional: As per HPI kb Exam: 21:16 Constitutional: This is a well developed, well nourished patient who is awake, alert, kb and in no acute distress. Head/Face: Normocephalic, atraumatic. ENT: Moist Mucous membranes Cardiovascular: Regular rate Respiratory: Respirations even and unlabored. No increased work of breathing. Talking in full sentences Abdomen/GI: Soft, non-tender. No distention Skin: Warm, dry with normal turgor. Normal color. Neuro: Awake and alert, GCS 15, oriented to person, place, time, and situation. 21:16 Musculoskeletal/extremity: Extremities: grossly normal except: noted in the medial aspect of right calf: pain, swelling, tenderness, ROM: intact in all extremities, Circulation is intact in all extremities. Sensation intact. Weight bearing: able to fully bear weight, Vital Signs: 16:31 BP 143 / 75; Pulse 82; Resp 18; Temp 98.2(TE); Pulse Ox 95% on R/A; Weight 90.72 kg; ld1 Height 5 ft. 7 in. ; Pain 10/10; 18:50 BP 130 / 66; Pulse 71; Resp 19; Pulse Ox 98% ; Pain 10/10; jl7 19:30 BP 144 / 78; Pulse 82; Resp 18; Pulse Ox 96% on R/A; Pain 3/10; rg5 16:31 Body Mass Index 31.32 (90.72 kg, 170.18 cm) ld1 16:31 Pain Scale: Adult ld1 18:50 Pain Scale: Adult jl7 19:30 Pain Scale: Adult rg5 MDM: 16:21 Medical Screening Exam initiated kb 21:17 Differential diagnosis: dvt, strain, pe. Data reviewed: vital signs, nurses notes. kb Consideration of Admission/Observation Escalation of care including admission/observation considered. admission/transfer considered but ct findings are unchanged from prior, negative for pe, dvt. Management of patient was discussed with the following: Dr Sutherland. Historians other than the Patient: Spouse/Significant Other: . Counseling: I had a detailed discussion with the patient and/or guardian regarding the historical points, exam findings, and any diagnostic results supporting the discharge/admit diagnosis, lab results, radiology results, the need for outpatient follow up, a family practitioner, to return to the emergency department if symptoms worsen or persist or if there are any questions or concerns that arise at home. 01/30 16:32 Order name: Basic Metabolic Panel; Complete Time: 18:02 kb 01/30 16:32 Order name: CBC with Diff; Complete Time: 17:54 kb 01/30 16:32 Order name: LFT's; Complete Time: 18:02 kb 04 16:32 Order name: PT-INR; Complete Time: 17:58 kb 01/30 16:32 Order name: Troponin HS; Complete Time: 18:02 kb 04 16:29 Order name: US Extremity Venous W Compression Abner; Complete Time: 17:19 kb 01/30 16:32 Order name: XRAY Chest (1 view); Complete Time: 17:39 kb 01/30 16:32 Order name: CT Aorta for Dissection; Complete Time: 18:55 kb 01/30 16:32 Order name: CT Chest For PE Angio; Complete Time: 18:38 kb 01/30 16:32 Order name: EKG; Complete Time: 16:32 kb 01/30 16:32 Order name: Cardiac monitoring; Complete Time: 18:57 kb 01/30 16:32 Order name: EKG - Nurse/Tech; Complete Time: 18:57 kb 01/30 16:32 Order name: IV Saline Lock; Complete Time: 17:25 kb 01/30 16:32 Order name: Labs collected and sent; Complete Time: 17:25 kb 01/30 16:32 Order name: O2 Per Protocol; Complete Time: 18:06 kb 01/30 16:32 Order name: O2 Sat Monitoring; Complete Time: 18:06 kb Administered Medications: 18:37 Drug: MethylPrednisoLONE IVP 125 mg IVP once Route: IVP; Site: right antecubital; jl7 19:29 Follow up: Response: No adverse reaction rg5 18:37 Drug: diphenhydrAMINE IVP 25 mg IVP once Route: IVP; Site: right antecubital; jl7 19:29 Follow up: Response: No adverse reaction rg5 19:49 Drug: morphine IVP or IV 4 mg IVP once over 4 mins Route: IVP; Infused Over: 4 mins; rg5 Site: right antecubital; 20:15 Follow up: Response: No adverse reaction; Pain is decreased rg5 Disposition: 20:41 Co-signature as Attending Physician, Tadeo Sutherland MD I reviewed the patient's care rn provided by the Advanced Practice Provider and agree with the diagnosis and treatment plan. Disposition Summary: 01/30/25 20:18 Discharge Ordered Notes: Location: Home Condition: Stable kb Diagnosis - Pain in right leg kb - Short segment dissection distal abdominal aorta -unchanged kb Followup: kb - With: Emergency Department - When: As needed - Reason: Worsening of condition Followup: kb - With: Private Physician - When: 2 - 3 days - Reason: Recheck today's complaints, Continuance of care, Re-evaluation by your physician Discharge Instructions: - Discharge Summary Sheet kb - Musculoskeletal Pain kb Forms: - Medication Reconciliation Form kb - Antibiotic Education kb - Prescription Opioid Use kb - Patient Portal Instructions kb - Leadership Thank You Letter kb Signatures: Dispatcher [employer] Roma Ramon FNP-C FNP-Tadeo Mcfarlane MD MD rn Leal, Jahala, RN RN jl7 Lacie Mcintosh, RN RN ld1 Zak Guy, RN RN rg5 Corrections: (The following items were deleted from the chart) 16:27 16:24 Pt is a 59 year old male who presents for pain to right calf that started 10 days kb ago. The pain has moved up his leg to his groin since onset. Also reports abdominal pain and low back pain that is worse with cough. Reports shortness of breath. . kb 16:32 16:32 BASIC METABOLIC PANEL+C.LAB.BRZ ordered. EDMS EDMS 16:32 16:32 CBC+H.LAB.BRZ ordered. EDMS EDMS 16:32 16:32 HEPATIC FUNCTION+C.LAB.BRZ ordered. EDMS EDMS 16:32 16:32 PROTIME (+INR)+COAG.LAB.BRZ ordered. EDMS EDMS 16:32 16:32 Troponin High Sensitivity+C.LAB.BRZ ordered. EDMS EDMS 16:32 16:32 Angio Aorta For Dissection+CT.RAD.BRZ ordered. EDMS EDMS 16:32 16:32 Chest For PE Angio+CT.RAD.BRZ ordered. EDMS EDMS
[2025-01-30 20:34] VITALS: TEMP 98.2
[2025-01-30 20:36] VITALS: BP 144/78; O2SAT 96
--- NOTE | 2025-01-31 11:04 | EKG ---
Test Date: 2025-01-30 Test Time: 18:48:30 Library Services Coordinator: ANDRADE MEASUREMENT RESULTS: Intervals: Rate: 83 MS: 136 QRSD: 92 QT: 378 QTc: 444 [place]: P: 76 MS: 136 QRS: 61 T: 46 INTERPRETIVE STATEMENTS: Normal sinus rhythm Normal ECG Compared to ECG 01/14/2025 19:51:47 No significant changes Electronically Signed On 01-31-25 11:02:35 CREDIT CONTROLLER by Guanaco Gayle
== END 2025-01-30 20:29 | disposition home or self-care (01) ==
LOC: ER 16:17
DX: M79.604 Pain in right leg (principal); I71.02 Dissection of abdominal aorta
CPT/HCPCS: 36415; 71045; 71275; 74175; 80048; 80076; 84484; 85025; 85610; 93005; 93970; J1200; J2919